=== PATIENT | male | born 1980 | race Caucasian/White ===

== ENCOUNTER 2021-05-17 09:48 | Emergency (ER) | payer MEDICAID ==
[~2021-05-17] VITALS: Ht 180.3 cm; Wt 90.0 kg
[2021-05-17] MEDS ORDERED: HALOPERIDOL LACTATE 5MG/ML VIAL IM STA (10:06)
[2021-05-17] MEDS ORDERED: DIPHENHYDRAMINE 50MG/ML VIAL IM STA (10:06)
[2021-05-17 11:26] LABS: BASOPHILS % 1.8 % (0.0-2.0); HEMATOCRIT. 35.8 % (42.0-52.0); HEMOGLOBIN. 12.7 g/dL (14.0-18.0); LYMPHOCYTES % 28.8 % (20.0-50.0); MEAN CORPUSCULAR HEMOGLOBIN 35.5 pg (28.0-32.0); MEAN PLATELET VOLUME 7.3 fl (7.4-10.4); MONOCYTES % 11.5 % (2.0-8.0); NEUTROPHILS % 52.9 % (40.0-76.0); PLATELET 188 x1000/uL (130-400); RED BLOOD CELL COUNT 3.58 mill/uL (4.7-6.1); RED CELL DISTRIBUTION WIDTH 12.7 % (11.6-14.6)
[2021-05-17 11:32] LABS: CHLORIDE 110 mEq/L (98-107)
[2021-05-17 11:36] LABS: ETHANOL BLOOD < 10 mg/dL
[2021-05-17 16:17] VITALS: BP 134/96
== END 2021-05-17 16:20 | disposition home or self-care (01) ==
LOC: EDBD 09:56 → ER 09:56
DX: R41.0 Disorientation, unspecified (principal)
CPT/HCPCS: 36415; 80053; 80307; 80320; 80329; 85025; 96372; 99285; J1200; J1630; G0480